=== PATIENT | male | born 1985 | race Hispanic/Latino ===

== ENCOUNTER 2020-12-16 12:58 | Emergency (ER) | payer SELFPAY ==
[2020-12-16] MEDS ORDERED: diphenhydrAMINE 25 MG CAP ONE (13:27)
[2020-12-16] MEDS ORDERED: Ibuprofen 400 MG TAB ONE (13:27)
== END 2020-12-16 15:47 | disposition home or self-care (01) ==
LOC: MADERS 12:58
DX: T65.91XA Toxic effect of unspecified substance, accidental (unintentional), initial encounter (principal)
CPT/HCPCS: 99283